=== PATIENT | female | born 1955 | race Caucasian/White ===

== ENCOUNTER 2018-11-28 06:50 | Day surgery (SDC) | payer OTHER ==
[~2018-11-28 06:50] MED LIST: ADVAIR 100-501 EACH IH; CRESTOR20 MG PO; EVISTA60 MG PO; PREDNISOLONE SO10 MG PO; PROAIR HFA8.5 GM IH; SYNTHROID125 MCG PO; ZANTAC150 MG PO; ZETIA10 MG PO
== END 2018-11-28 15:45 | disposition home or self-care (01) ==
LOC: CIR.AMB 06:50
DX: M25.311 Other instability, right shoulder (principal); M24.111 Other articular cartilage disorders, right shoulder